=== PATIENT | female | born 1965 | race Caucasian/White ===

== ENCOUNTER 2019-09-03 10:45 | Outpatient (CLI) | payer BC ==
--- NOTE | 2019-09-03 12:50 | CT ---
CTA ABDOMEN AND PELVIS WITH BILATERAL LOWER EXTREMITY RUNOFF: INDICATIONS: Lower extremity peripheral vascular disease; left fifth toe is turning purple TECHNIQUE: Multiple CTA images were obtained of the abdomen and pelvis with bilateral lower extremity runoff uti lizing IV contrast and 3D reformatted imaging. Axial, coronal and sagittal reformatted images were constructed from the raw data. FINDINGS: ABDOMEN: Lung bases: Clear Liver: Diffuse fatty liver Gallbladder: Normal appearing. Pancreas: Normal. Adrenal glands: Normal. Spleen: Normal. Kidneys and ureters: Normal. No hydronephrosis. Lymph nodes:No lymphadenopathy. Free fluid in abdomen:No free fluid is evident. PELVIS: Small and large bowel: Normal Appendix:Normal Bladder: Normal. Rectal and perirectal soft tissues:Normal. Reproductive structures: Normal. Free fluid in pelvis: No free fluid is evident. Lymphadenopathy pelvis: No lymphadenopathy is evident. Osseous structures: No acute osseous abnormality. No destructive osteolytic or osteoblastic lesion i s identified. There is scattered degenerative and osteoarthritic changes. Soft tissues:Normal. VASCULATURE: Aorta: Moderate atherosclerotic irregularity involving the aorta without aneurysmal dilatation, acute stenosis or dissection. Celiac:Normal in caliber without evidence of stenosis or occlusion. SMA:Normal in caliber without evidence of stenosis or occlusion. Renal arteries:The right renal artery is duplicated. Both renal arteries are fully patent. The left r enal artery is patent. HERMILA:Normal in caliber without evidence of stenosis or occlusion. Right common iliac artery: Normal in caliber without evidence of stenosis or occlusion. Right external iliac artery: Normal in caliber without evidence of stenosis or occlusion. Right internal iliac artery: Normal in caliber without evidence of stenosis or occlusion. Left common iliac artery: Normal in caliber without evidence of stenosis or occlusion. Left external iliac artery: Normal in caliber without evidence of stenosis or occlusion.. Left internal iliac artery: Normal in caliber without evidence of stenosis or occlusion. Right common femoral artery: Normal in caliber without evidence of stenosis or occlusion. Right deep femoral artery: Normal in caliber without evidence of stenosis or occlusion. Right superficial femoral artery: There is mild atherosclerotic narrowing involving the proximal rig ht superficial femoral artery. Right popliteal artery: There is mild atherosclerotic irregularity without hemodynamically significa nt stenosis. Right posterior tibial artery: Normal in caliber without evidence of stenosis or occlusion. Right anterior tibial artery: Normal in caliber without evidence of stenosis or occlusion. Right peroneal artery: Normal in caliber without evidence of stenosis or occlusion. Left common femoral artery: Normal in caliber without evidence of stenosis or occlusion. Left deep femoral artery: Normal in caliber without evidence of stenosis or occlusion. Left superficial femoral artery: There is 50% luminal caliber narrowing involving the proximal left SFA. There is mild irregularity involving the distal left SFA. Left popliteal artery: Normal in caliber without evidence of stenosis or occlusion. Left posterior tibial artery: Normal in caliber without evidence of stenosis or occlusion. Left anterior tibial artery: Normal in caliber without evidence of stenosis or occlusion. Left peroneal artery: Normal in caliber without evidence of stenosis or occlusion. Additional findings: None. IMPRESSION: 1. 50% luminal caliber narrowing involving the proximal left SFA. Mild atherosclerotic irregularity i nvolving the superficial femoral artery bilaterally. 2. Fatty liver
[2019-09-03] MEDS ORDERED: Iopamidol 370 76% 100 ML VIAL ONE (12:55)
== END 2019-09-03 10:46 | disposition home or self-care (01) ==
LOC: CT 10:45
PROVIDERS: ATTEND Thoracic Surgery (Cardiothoracic Vascular Surgery)
DX: I70.223 Atherosclerosis of native arteries of extremities with rest pain, bilateral legs (principal); K76.0 Fatty (change of) liver, not elsewhere classified
CPT/HCPCS: 75635; Q9967

== ENCOUNTER 2019-09-13 13:52 | Outpatient (CLI) | payer BC ==
--- NOTE | 2019-09-13 14:59 | MRI ---
MR cervical spine MR CERVICAL SPINE WITHOUT CONTRAST INDICATION: 54-year-old female with bilateral hand and torso numbness for many months TECHNIQUE: Multiplanar multisequence MR images were obtained of the cervical spine without contrast. COMPARISON: None FINDINGS: Posterior fossa: Within normal limits. Bone marrow signal intensity: Normal Spinal alignment: There is straightening of the normal cervical lordosis. Craniocervical junction: Normal appearing. Prevertebral and perivertebral soft tissues: Visualized soft tissues appear within normal limits. Vertebral levels: C2-C3: There is mild facet joint degenerative change. There is no appreciable central canal or neural foraminal narrowing. C3-4: There is mild facet joint degenerative change with no appreciable central canal or neural gui inal narrowing. There is a very tiny central disc protrusion. C4-5: There is a central, inferior projecting disc extrusion measuring 1.5 x 1.1 cm in its greatest craniocaudad and mediolateral dimensions respectively. The central disc extrusion is causing moderate central canal narrowing with moderate ventral effacement of the spinal cord. There are regio ns of internal T2 signal intensity seen within the right ventrolateral aspect of the spinal cord at the C5 vertebral level suspicious for either edema or myelomalacia. There is mild uncovertebral hyper trophy at this level that is greater on the right that induces mild right neural foraminal narrowing. C5-C6: There is a broad-based disc bulge with a superimposed central disc protrusion that causes mild ventral effacement of the spinal cord. There is no neural foraminal narrowing at this level. C6-C7: There is a broad-based bulge causing mild ventral effacement of the subarachnoid space without definite cord compression. No neural foraminal narrowing is demonstrated. C7-T1: No appreciable central canal or neuroforaminal narrowing. IMPRESSION: 1. Large central disc extrusion at C4-5 causing moderate central canal narrowing with moderate ventra l effacement of the spinal cord. There is mild increased T2 signal intensity seen within the right ventrolateral aspect of the spinal cord at the C5 vertebral level suspicious for focus of spinal cord edema or myelomalacia. Neurosurgical spinal referral is recommended. 2. Mild right neural foraminal narrowing at C4-5. 3. Broad-based disc bulge with a superimposed central disc protrusion at C5-6 causing mild ventral ef facement spinal cord without cord signal abnormality. 4. Broad-based bulge at C6-7 induces mild central canal narrowing without cord compression.
== END 2019-09-13 13:53 | disposition home or self-care (01) ==
LOC: SCSMRI 13:52
PROVIDERS: ATTEND Psychiatry & Neurology Neurology
DX: R20.1 Hypoesthesia of skin (principal); M50.221 Other cervical disc displacement at C4-C5 level; M50.822 Other cervical disc disorders at C5-C6 level; M48.02 Spinal stenosis, cervical region
CPT/HCPCS: 72141

== ENCOUNTER 2019-10-11 10:00 | Outpatient (CLI) | payer BC | END 2019-10-11 10:01 | disposition home or self-care (01) | LOC: LABBT 10:00 | PROVIDERS: ATTEND Neurological Surgery | DX: Z01.818 Encounter for other preprocedural examination (principal); G95.9 Disease of spinal cord, unspecified | CPT/HCPCS: 93005; 93010 ==

== ENCOUNTER 2019-10-11 15:00 | Inpatient (IN) | payer BC ==
[2019-10-11 15:12] VITALS: BMI 45.3
--- NOTE | 2019-10-14 07:42 | HP ---
HISTORY OF PRESENT ILLNESS: Ms. Richards is a 54-year-old woman here today for bilateral numbness of the hands without any obvious symptoms of radiculopathy to the arms or posterior neck. She does have perhaps slight change in her gait, where she feels mildly unsteady on rare occasion. She does have a new MRI from [place] that reveals a large central disk herniation at C5-6 causing compression of cervical spinal cord. She is here today to discuss options for treatment. CURRENT MEDICATIONS: Include; 1. Metformin. 2. Glimepiride. 3. Trulicity. 4. Effexor. 5. Amlodipine. 6. Aspirin. 7. Diclofenac. ALLERGIES: TO CODEINE. PAST SURGICAL HISTORY: None listed. PHYSICAL EXAMINATION: GENERAL: The patient is alert and oriented x3. MUSCULOSKELETAL: Gait is normal. No ataxia. Normal Romberg test. Negative Preciado's bilaterally. Maybe some slight increase in reflexes bilaterally in the biceps tendon and brachioradialis. 5/5 strength in all movements of bilateral upper extremities. ASSESSMENT: Cervical spinal stenosis and cervical disk herniation. PLAN: Dr. Handley met with the patient, reviewed imaging, advocated for C5-C6 ACDF. He explained to the patient risks, benefits, and alternatives to the procedure. The patient expressed understanding and elected to move forward with the surgery as discussed. I do believe the patient is mentally competent and capable of making medical decisions for herself. We will move forward with surgery as planned. Job ID: [id number]
[2019-10-14] MEDS ORDERED: Dexamethasone 20 MG/5 ML VIAL ONE (09:40)
[2019-10-14] MEDS ORDERED: PHENYLEPHRINE-NS 100 MCG/ML 10 ML SYRINGE ONE (09:40)
[2019-10-14] MEDS ORDERED: Metoclopramide HCl 10 MG/2 ML VIAL ONE (09:40)
[2019-10-14] MEDS ORDERED: Glycopyrrolate 0.2 MG/ML 5 ML SYRINGE ONE (09:40)
[2019-10-14] MEDS ORDERED: Lidocaine 1% PF 5 ML VIAL ONE (09:40)
[2019-10-14] MEDS ORDERED: Ondansetron PF 4 MG/2 ML Vial ONE (09:40)
[2019-10-14] MEDS ORDERED: PROPOFOL 200 MG/20 ML VIAL ONE (09:40)
[2019-10-14] MEDS ORDERED: Rocuronium Bromide 10 MG/ML (10ML VIAL) ONE (09:40)
[2019-10-14] MEDS ORDERED: Midazolam HCl 2 mg/2 ml Vial ONE (11:44)
[2019-10-14 12:09] LABS: #Basophils 0.1 thou/uL (0.0-0.2); #Eosinphils 0.1 thou/uL (0.0-0.7); #Lymphocytes 1.9 thou/uL (1.20-3.40); #Monocytes 0.4 thou/uL (0.11-0.59); #Neutrophils 6.3 thou/uL (1.40-6.50); %Basophils 0.7 % (0.0-1.0); %Eosinophils 1.1 % (0.0-10.0); %Lymphocytes 22.2 % (21.0-51.0); %Monocytes 4.5 % (0.0-10.0); %Neutrophils 71.5 % (42.0-75.0); Hemoglobin 15.6 g/dL (12.0-16.0); Mean Corpuscular HGB CONC 34.9 g/dL (32.0-36.0); Mean Corpuscular Hemoglobin 31.1 pg (27.0-31.0); Mean Corpuscular Volume 89.1 fL (78.0-98.0); Platelet Count 307 thou/uL (130-400); RBC Distribution Width 12.2 % (11.5-14.5); Red Blood Cell (RBC) Count 5.03 mill/uL (4.20-5.40); White Blood Cell (WBC) Count 8.8 thou/uL (4.8-10.8)
[2019-10-14] MEDS ORDERED: Fentanyl 100 MCG/2 ML VIAL ONE ×4 (12:26→15:13)
--- NOTE | 2019-10-14 14:33 | OP ---
DATE OF PROCEDURE: 10/14/2019 CLINICAL MOLECULAR GENETICIST: Wilton Ricks PA-C INDICATION: Prevent neurologic decline. DIAGNOSIS: Cervical stenosis with myelopathy. PROCEDURE PERFORMED: C5-C6 anterior cervical discectomy and fusion. ANESTHESIA: General. DESCRIPTION OF PROCEDURE: The patient was brought into the operating room and placed under general anesthesia. She was placed on table in a supine position. A transverse incision was planned over the lateral aspect of the neck on the right. After prepping and draping and after an appropriate preoperative pause, the incision was created. The underlying platysma muscle was identified and incised. A blunt tissue plane anterior to the sternocleidomastoid muscle was used to gain access to the prevertebral space. Self-retaining retractors were placed. After confirming the appropriate level with C-arm fluoroscopy, an annulotomy was performed in the C5-C6 disk space, where disk material was removed as well as anterior and posterior osteophytes. There was a cord deformity from the inferiorly migrated disk fragment present just after removing the disk. We were able to remove additional disk material along the posterior margin of the C6 bone by removing the posterior superior corner of the endplate. After completing the decompression, the cord appeared normal with respect to its surface area without evidence for deformity. As such, I chose not to perform a corpectomy procedure. After completing the decompression, a 7-mm lordotic PEEK cage packed with allograft and autograft material was placed within the interbody space. An anterior cervical plate was then fashioned to the front of the spine and secured with a total of 4 fixed screws. Midline and lateral structures were inspected and found to be free from significant trauma. The wound was irrigated. Hemostasis was maintained throughout. The wound was then closed in anatomic layers and a pressure dressing was applied. There were no known procedural complications. Job ID: [id number]
[2019-10-14] MEDS ORDERED: Ketorolac Tromethamine 30 MG/ML VIAL ONE (15:13)
[2019-10-14] MEDS ORDERED: traMADol HCl 50 MG TAB ONE (17:47)
== END 2019-10-14 18:05 | disposition home or self-care (01) | DRG 472 ==
LOC: SURG A 10-14 09:42
PROVIDERS: ADMIT Neurological Surgery; ATTEND Neurological Surgery
PROC: 0RG10A0 Fusion of Cervical Vertebral Joint with Interbody Fusion Device, Anterior Approach, Anterior Column, Open Approach (ICD-10-PCS; principal; 2019-10-14)
PROC: 0RT30ZZ Resection of Cervical Vertebral Disc, Open Approach (ICD-10-PCS; 2019-10-14)
DX: M50.023 Cervical disc disorder at C6-C7 level with myelopathy (principal); Z68.42 Body mass index [BMI] 45.0-49.9, adult; Z79.84 Long term (current) use of oral hypoglycemic drugs; Z79.82 Long term (current) use of aspirin; Z79.899 Other long term (current) drug therapy; Z88.5 Allergy status to narcotic agent; M48.02 Spinal stenosis, cervical region; E66.01 Morbid (severe) obesity due to excess calories; F41.9 Anxiety disorder, unspecified; Z90.710 Acquired absence of both cervix and uterus; I10 Essential (primary) hypertension
CPT/HCPCS: 36415; 76000; 85025; 93005; C1713; C1776; J0690; J1100; J1885; J2001; J2250; J2405; J2704; J2765; J3010

== ENCOUNTER → 2019-11-11 | Day surgery (SDC) | payer BC ==
[2019-11-08 10:18] VITALS: BMI 45.1
[~2019-11-11] MED LIST: Aspirin Chewable 81 MG TAB ONE; Clopidogrel Bisulfate 300 MG TAB ONE; Fentanyl 100 MCG/2 ML VIAL ONE; Heparin (Artline) 500 ML ONE; Heparin 10,000 UNITS/1 ML VIAL ONE; Iopamidol 370 76% 50 ML VIAL FS ONE; Lidocaine 1% (PF) 30 ML VIAL ONE; Midazolam HCl 2 mg/2 ml Vial ONE; Nitroglycerin 4.9 GM Bottle ONE; Protamine Sulfate 50 MG/5 ML VIAL ONE
[2019-11-11 06:43] LABS: #Basophils 0.1 thou/uL (0.0-0.2); #Eosinphils 0.1 thou/uL (0.0-0.7); #Lymphocytes 2.1 thou/uL (1.20-3.40); #Monocytes 0.6 thou/uL (0.11-0.59); #Neutrophils 6.3 thou/uL (1.40-6.50); %Eosinophils 1.3 % (0.0-10.0); %Monocytes 6.3 % (0.0-10.0); %Neutrophils 68.4 % (42.0-75.0); Hemoglobin 15.1 g/dL (12.0-16.0); Mean Corpuscular HGB CONC 33.7 g/dL (32.0-36.0); Mean Corpuscular Volume 88.9 fL (78.0-98.0); Mean Platelet Volume 8.1 fL (7.4-10.4); Platelet Count 327 thou/uL (130-400); RBC Distribution Width 12.6 % (11.5-14.5); Red Blood Cell (RBC) Count 5.02 mill/uL (4.20-5.40); White Blood Cell (WBC) Count 9.2 thou/uL (4.8-10.8)
[2019-11-11 07:04] LABS: Anion Gap 14 mmol/L (10-20); BUN (Urea Nitrogen) 7 mg/dL (9.8-20.1); Calc. Creatinine Clearance 150 mL/min (70-130); Carbon Dioxide 27 mmol/L (22-29); Chloride 99 mmol/L (98-107); Estimated GFR-MDRD 86; Glucose 314 mg/dL (70-105); Potassium 4.1 mmol/L (3.5-5.1); Sodium 136 mmol/L (136-145)
--- NOTE | 2019-11-11 09:54 | OP ---
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 PROCEDURES PERFORMED: 1. Abdominal aortogram. 2. Left lower extremity runoff. 3. Angioplasty and then stenting of the left superficial femoral artery proximally. FINDINGS: The patient had normal aortoiliac segments bilaterally. The left superficial femoral artery had a discrete 80% stenosis about 4 cm from its origin. Runoff was via three vessels with mild plaquing in the distal SFA and proximal popliteal and no stenosis. Post procedure, there was no residual stenosis. DESCRIPTION OF PROCEDURE: After prepping and draping the right groin, ultrasound-guided puncture of the right common femoral artery was performed after lidocaine administration in the subcutaneous tissues. A 5-Ivorian dilator sheath, Contra catheter were then used for initial angiography and then tracking over the iliac bifurcation. Following runoff, a Wholey wire was advanced into the distal SFA and a 6-Ivorian Destination sheath advanced into the common femoral artery. A Lutonix 5 x 40 balloon was then inflated for 3 minutes after good ACT levels greater than 210. There was still some residual stenosis and it did not appear to have opened up as well as we would have liked. A 6 x 40 Innova stent was then deployed and posted with the Innova balloon with a nice result. Heparin is to be reversed with protamine and sheath will be removed. Job ID: [id number]
== END ==
LOC: CCL 05:48
PROVIDERS: ATTEND Thoracic Surgery (Cardiothoracic Vascular Surgery)
PROC: 047L3ZZ Dilation of Left Femoral Artery, Percutaneous Approach (ICD-10-PCS; principal; 2019-11-11)
DX: I73.9 Peripheral vascular disease, unspecified (principal); I10 Essential (primary) hypertension; E11.9 Type 2 diabetes mellitus without complications; F17.200 Nicotine dependence, unspecified, uncomplicated; F41.9 Anxiety disorder, unspecified; Z79.84 Long term (current) use of oral hypoglycemic drugs; Z79.899 Other long term (current) drug therapy; Z88.5 Allergy status to narcotic agent
CPT/HCPCS: 37226; 76942; 80048; 85025; 85347; 93454; 99152; 99153; C1769; C1887; J1644; J2001; J2250; J2720; J3010; Q9967

== ENCOUNTER 2021-10-22 12:37 | Outpatient (CLI) | payer BC ==
[2021-10-22 14:30] LABS: #Eosinphils 0.1 10x3/uL (0.0-0.5); #Monocytes 0.5 10x3/uL (0.0-1.1); #Neutrophils 4.8 10x3/uL (1.5-8.4); %Basophils 0.5 % (0.0-2.0); %Eosinophils 1.8 % (0.0-6.0); %Lymphocytes 28.6 % (18.0-47.0); %Monocytes 6.3 % (0.0-10.0); %Neutrophils 62.4 % (40.0-75.0); Mean Corpuscular HGB CONC 32.9 g/dL (32.0-36.0); Mean Corpuscular Hemoglobin 29.5 pg (27.0-33.0); Mean Corpuscular Volume 89.7 fl (81.6-98.3); Platelet Count 309 10x3/uL (150-450); RBC Distribution Width 12.9 % (11.5-14.5); Red Blood Cell (RBC) Count 4.74 10x6/uL (3.90-5.03); White Blood Cell (WBC) Count 7.7 10x3/uL (3.5-10.5)
[2021-10-22 14:41] LABS: ALT (SGPT) 10 U/L (8-55); AST (SGOT) 9 U/L (5-34); Albumin 3.9 g/dL (3.5-5.0); Alkaline Phosphatase 114 U/L (40-110); Anion Gap 15 mmol/L (10-20); BUN (Urea Nitrogen) 7 mg/dL (9.8-20.1); Bilirubin, Total 0.5 mg/dL (0.2-1.2); Calc. Creatinine Clearance 0 mL/min (70-130); Calcium 8.9 mg/dL (7.8-10.44); Carbon Dioxide 26 mmol/L (22-29); Chloride 100 mmol/L (98-107); Globulin 2.1 g/dL (2.4-3.5); Glucose 319 mg/dL (70-105); Potassium 4.2 mmol/L (3.5-5.1); Sodium 137 mmol/L (136-145)
[2021-10-23 12:54] LABS: SARS-CoV-2 PCR by NAA Not Detected (NotDetected)
== END 2021-10-22 12:38 | disposition home or self-care (01) ==
LOC: LABBT 12:37
PROVIDERS: ATTEND Internal Medicine Cardiovascular Disease
DX: Z01.812 Encounter for preprocedural laboratory examination (principal); Z20.822 Contact with and (suspected) exposure to COVID-19
CPT/HCPCS: 80053; 85025; U0003; U0005

== ENCOUNTER 2021-11-18 08:52 | Outpatient (CLI) | payer BC ==
[2021-11-18 11:30] LABS: #Eosinphils 0.2 10x3/uL (0.0-0.5); #Monocytes 0.5 10x3/uL (0.0-1.1); #Neutrophils 5.5 10x3/uL (1.5-8.4); %Basophils 0.5 % (0.0-2.0); %Eosinophils 2.1 % (0.0-6.0); %Lymphocytes 23.4 % (18.0-47.0); %Monocytes 6.3 % (0.0-10.0); %Neutrophils 67.3 % (40.0-75.0); Hemoglobin 14.1 g/dL (12.0-15.5); Mean Corpuscular HGB CONC 33.7 g/dL (32.0-36.0); Mean Corpuscular Hemoglobin 29.8 pg (27.0-33.0); Mean Corpuscular Volume 88.4 fl (81.6-98.3); Platelet Count 319 10x3/uL (150-450); RBC Distribution Width 13.8 % (11.5-14.5); Red Blood Cell (RBC) Count 4.73 10x6/uL (3.90-5.03); White Blood Cell (WBC) Count 8.1 10x3/uL (3.5-10.5)
[2021-11-18 11:44] LABS: Anion Gap 16 mmol/L (10-20); BUN (Urea Nitrogen) 9 mg/dL (9.8-20.1); Carbon Dioxide 22 mmol/L (22-29); Chloride 99 mmol/L (98-107); Potassium 4.6 mmol/L (3.5-5.1); Sodium 132 mmol/L (136-145)
[2021-11-18 11:45] LABS: ALT (SGPT) 14 U/L (8-55); AST (SGOT) 11 U/L (5-34); Albumin 3.9 g/dL (3.5-5.0); Alkaline Phosphatase 108 U/L (40-110); Bilirubin, Total 0.5 mg/dL (0.2-1.2); Calc. Creatinine Clearance 0 mL/min (70-130); Calcium 8.2 mg/dL (7.8-10.44); Globulin 2.5 g/dL (2.4-3.5); Glucose 349 mg/dL (70-105); Protein, Total 6.4 g/dL (6.0-8.3)
[2021-11-18 20:28] LABS: SARS-CoV-2 PCR by NAA DETECTED (NotDetected)
== END 2021-11-18 08:53 | disposition home or self-care (01) ==
LOC: LABBT 08:52
PROVIDERS: ATTEND Internal Medicine Cardiovascular Disease
DX: U07.1 COVID-19 (principal); Z01.812 Encounter for preprocedural laboratory examination; I42.0 Dilated cardiomyopathy
CPT/HCPCS: 80053; 85025; U0003; U0005

== ENCOUNTER 2023-03-24 09:30 | Emergency (ER) | payer BC ==
[2023-03-24 09:49] LABS: #Basophils 0.1 thou/uL (0.0-0.2); #Eosinphils 0.1 thou/uL (0.0-0.7); #Monocytes 0.4 thou/uL (0.11-0.59); #Neutrophils 5.5 thou/uL (1.40-6.50); %Basophils 0.8 % (0.0-1.0); %Eosinophils 1.8 % (0.0-10.0); %Lymphocytes 23.3 % (21.0-51.0); %Monocytes 5.5 % (0.0-10.0); %Neutrophils 68.3 % (42.0-75.0); Hemoglobin 14.9 g/dL (12.0-16.0); Mean Corpuscular HGB CONC 35.1 g/dL (32.0-36.0); Mean Corpuscular Hemoglobin 30.8 pg (27.0-31.0); Mean Corpuscular Volume 87.8 fl (78.0-98.0); Mean Platelet Volume 10.6 fL (7.4-10.4); Platelet Count 297 10x3/uL (130-400); RBC Distribution Width 12.8 % (11.5-14.5); Red Blood Cell (RBC) Count 4.83 mill/uL (4.20-5.40)
[2023-03-24 10:12] LABS: Phosphorus 3.8 mg/dL (2.3-4.7)
[2023-03-24 10:14] LABS: ALT (SGPT) 10 U/L (8-55); AST (SGOT) 9 U/L (5-34); Albumin 4.1 g/dL (3.5-5.0); Alkaline Phosphatase 105 U/L (40-110); Anion Gap 15 mmol/L (10-20); BUN (Urea Nitrogen) 10 mg/dL (9.8-20.1); Bilirubin, Total 0.6 mg/dL (0.2-1.2); Calc. Creatinine Clearance 0 mL/min (70-130); Calcium 9.6 mg/dL (7.8-10.44); Carbon Dioxide 22 mmol/L (22-29); Chloride 97 mmol/L (98-107); Estimated GFR 83; Globulin 2.6 g/dL (2.4-3.5); Magnesium 1.6 mg/dL (1.6-2.6); Potassium 4.6 mmol/L (3.5-5.1); Protein, Total 6.7 g/dL (6.0-8.3); Sodium 129 mmol/L (136-145)
[2023-03-24 10:19] LABS: Glucose 427 mg/dL (70-105)
[2023-03-24] MEDS ORDERED: Insulin Regular 300 UNITS/3 ML VIAL ONE (11:21)
[2023-03-24] MEDS ORDERED: Carvedilol 6.25 MG TAB PO SCH (12:30)
[2023-03-24] MEDS ORDERED: Spironolactone 25 MG TAB PO SCH (12:30)
== END 2023-03-24 15:07 | disposition home or self-care (01) ==
LOC: ERS 09:30
DX: E11.65 Type 2 diabetes mellitus with hyperglycemia (principal); I10 Essential (primary) hypertension; F17.210 Nicotine dependence, cigarettes, uncomplicated; Z79.82 Long term (current) use of aspirin; Z79.899 Other long term (current) drug therapy
CPT/HCPCS: 36415; 36416; 80053; 82010; 83735; 84100; 85025; 96360; 96361; J1815